=== PATIENT | female | born 1980 | race Hispanic/Latino ===

== ENCOUNTER 2019-09-26 19:29 | Inpatient (IN) | payer MEDICAID ==
[~2019-09-26] VITALS: Ht 157.5 cm; Wt 73.9 kg
[2019-09-26] MEDS ORDERED: DINOPROSTONE 10 MG VAGINAL SUPP EC SCH (19:30)
[2019-09-26] MEDS ORDERED: MEPERIDINE-PF 50 MG/ML SYG IVP PRN (19:30)
[2019-09-26] MEDS ORDERED: AMPICILLIN 2GM+NS 100ML 100 ML IV SCH (19:30)
[2019-09-26] MEDS ORDERED: LACTATED RINGERS 500 ML 500 ML IV PRN (19:30)
[2019-09-26] MEDS ORDERED: PROMETHAZINE HCL 25 MG/ML 1ML AMPULE IM PRN (19:30)
[2019-09-26] MEDS ORDERED: EPHEDRINE SULFATE 50 MG/ML AMPULE IVP PRN (19:30)
[2019-09-26] MEDS ORDERED: NALOXONE HCL 0.4 MG/1 ML ML IV PRN (19:30)
[2019-09-26 20:11] LABS: APPEARANCE,URINE Clear (CLEAR); BILIRUBIN,URINE Negative (NEGATIVE); COLOR,URINE Yellow (YELLOW); GLUCOSE, URINE (UA) Negative (NEGATIVE); KETONES,URINE Trace mg/dL (NEGATIVE); LEUKOCYTE ESTERASE ,URINE Trace (NEGATIVE); NITRATE,URINE Negative (NEGATIVE); OCCULT BLOOD,URINE Small (NEGATIVE); PROTEIN,URINE Trace mg/dL (NEGATIVE)
[2019-09-26 21:02] LABS: HEMATOCRIT 34.2 % (36-48); MEAN CORPUSCULAR HEMOGLOBIN 32.1 pg (27.0-33.0); MEAN CORPUSCULAR HGB CONC 35.7 g/dL (32.0-36.0); RED BLOOD CELL COUNT(AUTO) 3.8 MIL/uL (4.00-5.50)
[2019-09-26 21:04] LABS: BACTERIA,URINE Few /HPF (None Seen); MUCUS,URINE Many LPF (None Seen); WBC,URINE 0-1 /HPF (0-1)
[2019-09-26] MEDS ORDERED: AMPICILLIN 2GM+NS 100ML 100 ML IV ONE (21:42)
[2019-09-27] MEDS: AMPICILLIN 1GM+NS 50ML 50 ML IV SCH ×4 (01:27→21:59)
[2019-09-27] MEDS: LACTATED RINGERS 1000ML 1,000 ML IV PRN ×2 (05:27→21:04)
[2019-09-27] MEDS ORDERED: OXYTOCIN 10 USP UNITS/ML 20 UNIT in LACTATED RINGERS 1000ML 1,000 ML IV SCH (07:00)
[2019-09-27] MEDS ORDERED: OXYTOCIN-LR 20 UNITS/1000 ML 1,000 ML IV ONE (10:00)
[2019-09-28] MEDS: AMPICILLIN 1GM+NS 50ML 50 ML IV SCH ×4 (02:01→20:26)
[2019-09-28] MEDS ORDERED: OXYTOCIN-LR 20 UNITS/1000 ML 1,000 ML IV ONE (03:48)
[2019-09-28] MEDS: LACTATED RINGERS 1000ML 1,000 ML IV PRN (06:15)
[2019-09-28] MEDS ORDERED: LACTATED RINGERS 1000ML 1,000 ML IV SCH (07:30)
[2019-09-28] MEDS ORDERED: CEFAZOLIN SODIUM 1 GM VIAL IVP PRN (07:30)
[2019-09-28 08:13] LABS: HEPATITIS Bs ANTIGEN SCREEN P Negative (Negative)
[2019-09-28] MEDS ORDERED: METHYLERGONOVINE MALEATE 0.2 MG/1 ML ML ONE (08:15)
[2019-09-28] MEDS ORDERED: ONDANSETRON HCL 4 MG/2 ML VIAL ONE (08:19)
[2019-09-28] MEDS ORDERED: DURAMORPH PF1 MG/ML 10ML AMP IV ONE (08:20)
[2019-09-28] MEDS ORDERED: OXYTOCIN 10 USP UNITS/ML ONE ×2 (08:20→08:59)
[2019-09-28] MEDS ORDERED: FENTANYL CITRATE PF 50 MCG/1 ML 2ML VIAL ONE (08:20)
[2019-09-28] MEDS ORDERED: CEFAZOLIN SODIUM 1 GM VIAL IVP ONE (08:22)
[2019-09-28] MEDS ORDERED: GLYCOPYRROLATE 1 MG/5 ML SYRINGE ONE (08:32)
[2019-09-28] MEDS ORDERED: SODIUM CHLORIDE 0.9% 10 ML VIAL IVP PRN (09:30)
[2019-09-28] MEDS ORDERED: PROMETHAZINE HCL 25 MG/ML 1ML AMPULE IM PRN (09:30)
[2019-09-28] MEDS ORDERED: OXYTOCIN-LR 20 UNITS/1000 ML 1,000 ML IV PRN (09:30)
[2019-09-28] MEDS ORDERED: MEPERIDINE-PF 75 MG/ML SYG IM PRN (09:30)
[2019-09-28 11:31] VITALS: BP 111/56
[2019-09-28] MEDS ORDERED: PREN1TAB80 PO (11:43)
[2019-09-28] MEDS ORDERED: CALDOLOR 800MG+NS 250ML 250 ML IV ONE (12:02)
[2019-09-28] MEDS ORDERED: DIPH,PERTUSS(ACELL),TET VAC/PF 0.5 ML VIAL IM SCH (12:15)
[2019-09-28] MEDS: DEXTROSE 5 %-0.45 % NACL 1,000 ML IV PRN (16:07)
[2019-09-28 16:37] VITALS: BP 99/57
[2019-09-28 19:49] VITALS: BP 112/70
[2019-09-28] MEDS: CALDOLOR 800MG+NS 250ML 250 ML IV SCH (20:23)
[2019-09-28 23:32] VITALS: BP 114/71
[2019-09-29] MEDS: DEXTROSE 5 %-0.45 % NACL 1,000 ML IV PRN (03:50)
[2019-09-29] MEDS ORDERED: CALDOLOR 800MG+NS 250ML 250 ML IV ONE (03:53)
[2019-09-29] MEDS: CALDOLOR 800MG+NS 250ML 250 ML IV SCH (03:54)
[2019-09-29 04:00] VITALS: BP 105/68
[2019-09-29] MEDS: AMPICILLIN 1GM+NS 50ML 50 ML IV SCH (04:00)
--- NOTE | 2019-09-29 06:45 | NUR ---
DOUGLAS SMITH, [facility] DONE BY ELSA, PCP AND PT UP IN CHAIR. PT INST TO CALL FOR ASSIST BEFORE GOING TO [facility], VERBALIZED UNDERSTANDING. Addendum: 09/29/19 at 0707 by IRA KOHLI RN RN Amended: Links added.
[2019-09-29 07:15] LABS: HEMATOCRIT 27.8 % (36-48); MEAN CORPUSCULAR HEMOGLOBIN 31.5 pg (27.0-33.0); MEAN CORPUSCULAR HGB CONC 34.5 g/dL (32.0-36.0); MEAN CORPUSCULAR VOLUME 91.1 fL (79-99); RED BLOOD CELL COUNT(AUTO) 3.05 MIL/uL (4.00-5.50); RED CELL DISTRIBUTION WIDTH 13.3 % (11.0-15.5); WHITE BLOOD COUNT (AUTO) 8.7 K/uL (4.8-10.8)
[2019-09-29 07:27] VITALS: BP 142/78
[2019-09-29 07:31] VITALS: BP 97/58
[2019-09-29] MEDS ORDERED: DOCUSATE SODIUM 100 MG CAP PO SCH (09:00)
[2019-09-29] MEDS ORDERED: IBUPROFEN 800 MG TAB PO SCH (09:30)
[2019-09-29] MEDS ORDERED: LANOLIN 30GM OINTMENT TP PRN (09:45)
[2019-09-29] MEDS ORDERED: SIMETHICONE 80 MG TAB.CHEW PO PRN (09:45)
[2019-09-29] MEDS ORDERED: BISACODYL 10 MG SUPP.RECT RC PRN (09:45)
[2019-09-29] MEDS ORDERED: HYDROCODONE/ACETAMINOPHEN 5/325 MG TAB PO PRN (09:45)
[2019-09-29] MEDS ORDERED: ACETAMINOPHEN-CODEINE 300/30MG TAB PO PRN (09:45)
[2019-09-29] MEDS ORDERED: ACETAMINOPHEN EXTRA STRENGTH 500 MG TABLET PO PRN (09:45)
[2019-09-29 10:41] VITALS: BP 102/63
--- NOTE | 2019-09-29 12:50 | NUR ---
DISCHARGE PT LEFT UNIT VIA WHEELCHAIR, WITH BABY IN ARMS, ACCOMPANIED BY SIGNIFICANT OTHER. DENIED PAIN AND HAD NO COMPLAINTS. BABY STRAPPED IN CAR SEAT. PT AND BABY TRANSPORTED BY PERSONAL VEHICLE.
== END 2019-09-29 12:50 | disposition home or self-care (01) | DRG 539 ==
LOC: LDH 19:29 → WSH 09-28 11:30
PROVIDERS: ADMIT Obstetrics & Gynecology; ATTEND Obstetrics & Gynecology
PROC: 0UB70ZZ Excision of Bilateral Fallopian Tubes, Open Approach (ICD-10-PCS; 2019-09-28)
PROC: 3E0234Z Introduction of Serum, Toxoid and Vaccine into Muscle, Percutaneous Approach (ICD-10-PCS; 2019-09-28)
PROC: 10D00Z1 Extraction of Products of Conception, Low, Open Approach (ICD-10-PCS; principal; 2019-09-28 08:00)
DX: O35.9XX0 Maternal care for (suspected) fetal abnormality and damage, unspecified, not applicable or unspecified (principal); Z3A.39 39 weeks gestation of pregnancy; Z37.0 Single live birth; Z23 Encounter for immunization; Z30.2 Encounter for sterilization; O09.513 Supervision of elderly primigravida, third trimester
CPT/HCPCS: 36415; 59510; 81001; 85027; 86592; 86850; 86900; 86901; 87340; 88302; 90715; 96360; 96361; A4344; G0378; J0290; J0690; J1741; J2210; J2274; J2405; J2590; J3010; J3490; J7120